=== PATIENT | female | born 1965 | race Caucasian/White ===

== ENCOUNTER 2020-04-11 18:27 | Emergency (ER) | payer MEDICAID ==
--- NOTE | 2020-04-11 18:30 | ERPHSYRPT ---
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 Patient underwent laboratory work-up on 04/08/2020. Patient denies fever or chills. There was significant elevation of her liver function tests. She was also noted to have elevated blood glucose. CAT scan was performed today which showed a distended gallbladder and dilation of the intra-and extrahepatic biliary system. The only medication the patient is on is levothyroxine and Cymbalta. She was tried on metformin to control her blood sugar but felt that that made her nauseated. I reviewed the CAT scan report as well as the reports of her laboratory data from 04/08/2020. Patient symptoms have persisted and patient was told to come into the emergency department for evaluation. Patient drove herself into the hospital. Patient is refusing any antiemetics or pain medicine at this time. Timing/Duration: week(s) Activities at Onset: none Quality: fullness, pressure Abdominal Pain Onset Location: generalized abdomen Pain Radiation: no radiation Severity of Pain-Max: mild Severity of Pain-Current: mild Modifying Factors: Improves With: vomiting Associated Symptoms: diarrhea, loss of appetite, vomiting, No fever/chills, No nausea Allergies/Adverse Reactions: No Known Drug Allergies Allergy (Unverified 04/11/20 18:52) Home Medications: Duloxetine HCl [Cymbalta] 60 mg PO DAILY 04/11/20 [History] Levothyroxine Sodium 50 mcg PO DAILY 04/11/20 [History] Travel Risk - International Travel Have you traveled outside of the country in past 3 weeks: No - Coronavirus Screening Are you exhibiting any of the following symptoms?: No Close contact with a COVID-19 positive Pt in past 14-21 Days: No - Review of Systems Constitutional: No Symptoms Eyes: No Symptoms Ears, Nose, & Throat: No Symptoms Respiratory: No Symptoms Cardiac: No Symptoms Abdominal/Gastrointestinal: Abdominal Pain, Nausea, Vomiting, Diarrhea, Appetite Changes Genitourinary Symptoms: No Symptoms Musculoskeletal: No Symptoms Skin: Other (Jaundice) Neurological: No Symptoms Psychological: No Symptoms Endocrine: No Symptoms Hematologic/Lymphatic: No Symptoms Immunological/Allergic: No Symptoms All Other Systems: Reviewed and Negative - Past Medical History Pertinent Past Medical History: Yes Neurological History: No Pertinent History ENT History: No Pertinent History Cardiac History: No Pertinent History Respiratory History: No Pertinent History Endocrine Medical History: Hypothyroidism Musculoskeletal History: No Pertinent History GI Medical History: No Pertinent History History: No Pertinent History - Past Surgical History Respiratory: No Pertinent History Gastrointestinal: No Pertinent History Genitourinary: No Pertinent History Musculoskeletal: No Pertinent History Female Surgical History: No Pertinent History - Nursing Vital Signs Nursing Vital Signs: Initial Vital Signs Temperature 98.0 F 04/11/20 18:41 Pulse Rate 77 04/11/20 18:41 Respiratory Rate 16 04/11/20 18:41 Blood Pressure 135/73 04/11/20 18:41 O2 Sat by Pulse Oximetry 100 04/11/20 18:41 Pain Scale Pain Intensity 5 - Physical Exam General Appearance: no apparent distress, alert, anxiety, thin Eye Exam: scleral icterus Ears, Nose, Throat Exam: normal ENT inspection, moist mucous membranes Neck Exam: normal inspection, non-tender, supple, full range of motion Respiratory Exam: normal breath sounds, lungs clear, airway intact, No chest tenderness, No respiratory distress Cardiovascular Exam: regular rate/rhythm, normal heart sounds, normal peripheral pulses Gastrointestinal/Abdomen Exam: soft, normal bowel sounds, tenderness (Mild diffuse), No guarding, No rebound Pelvic Exam: not done Rectal Exam: not done Back Exam: normal inspection Extremity Exam: normal inspection, normal range of motion, pelvis stable Neurologic Exam: alert, oriented x 3, cooperative, maxillofacial pathology II-XII nml as tested, normal mood/affect, nml cerebellar function, nml station & gait, sensation nml Skin Exam: jaundice Lymphatic Exam: No adenopathy SpO2 Interpretation: normal O2 Delivery: Room Air Ordered Tests: Active Orders 24 hr Category Date Time Status IV Insertion STAT Care 04/11/20 19:42 Active AMYLASE Stat Lab 04/11/20 19:45 Completed Bilirubin,Direct [Direct Bilirubin] Stat Lab 04/11/20 Completed CBC W DIFF Stat Lab 04/11/20 19:45 Completed CMP Stat Lab 04/11/20 19:45 Completed LIPASE Stat Lab 04/11/20 19:45 Completed Lactic Acid Stat Lab 04/11/20 20:34 Completed Medication Summary Discontinued Medications Generic Name Dose Route Start Last Admin Trade Name Freq PRN Reason Stop Dose Admin Sodium Chloride 1,000 mls @ 999 mls/hr 04/11/20 19:42 04/11/20 22:47 Sodium Chloride 0.9% 1000 Ml IV 04/11/20 20:42 Infused .Q1H1M STA Infusion Sodium Chloride Confirm 04/11/20 20:04 Sodium Chloride 0.9% 1000 Ml Administered 04/11/20 20:05 Dose 1,000 mls @ ud .ROUTE .STK-MED ONE Meperidine HCl 25 mg 04/11/20 21:36 04/11/20 22:17 Demerol 25mg Syringe IV 04/11/20 21:37 25 mg STAT ONE Administration Meperidine HCl Confirm 04/11/20 22:14 Demerol 25mg Syringe Administered 04/11/20 22:15 Dose 25 mg .ROUTE .STK-MED ONE Ondansetron HCl 4 mg 04/11/20 21:37 04/11/20 22:16 Zofran 4 Mg/2 Ml Vial IV 04/11/20 21:38 4 mg STAT ONE Administration Ondansetron HCl Confirm 04/11/20 22:14 Zofran 4 Mg/2 Ml Vial Administered 04/11/20 22:15 Dose 4 mg .ROUTE .STK-MED ONE Lab/Rad Data: Laboratory Result Diagrams 04/11/20 19:45 04/11/20 19:45 Laboratory Results 04/11/20 04/11/20 04/11/20 Range/Units Unknown 20:34 19:45 WBC (4.0-10.5) K/mm3 RBC (4.1-5.4) M/mm3 Hgb (12.0-16.0) gm/dl Hct (35-47) % MCV (78-100) fl MCH (26-32) pg MCHC (32-36) g/dl RDW (11.5-14.0) % Plt Count (150-450) K/mm3 MPV (7.5-11.0) fl Gran % (36.0-66.0) % Eos # (Auto) (0-0.5) Absolute Lymphs (auto) (1.0-4.6) Absolute Monos (auto) (0.0-1.3) Lymphocytes % (24.0-44.0) % Monocytes % (0.0-12.0) % Eosinophils % (0.00-5.0) % Basophils % (0.0-0.4) % Absolute Granulocytes (1.4-6.9) Basophils # (0-0.4) Sodium 134 L (137-145) mmol/L Potassium 3.7 (3.5-5.1) mmol/L Chloride 105 (98-107) mmol/L Carbon Dioxide 18 L (22-30) mmol/L Anion Gap 14.6 (5-15) MEQ/L BUN 17 (7-17) mg/dL Creatinine 0.60 (0.52-1.04) mg/dL Estimated GFR > 60.0 ML/MIN Glucose 216 H (74-106) mg/dL Lactic Acid 1.3 (0.4-2.0) Calcium 9.3 (8.4-10.2) mg/dL Total Bilirubin 10.30 H (0.2-1.3) mg/dL Direct Bilirubin 8.8 H (0.0-0.4) mg/dL AST 127 H (14-36) U/L ALT 293 H (0-35) U/L Alkaline Phosphatase 425 H (38-126) U/L Serum Total Protein 7.1 (6.3-8.2) g/dL Albumin 4.0 (3.5-5.0) g/dL Amylase 65 (30-110) U/L Lipase 78 (23-300) U/L 07/31/20 Range/Units 19:45 WBC 5.4 (4.0-10.5) K/mm3 RBC 4.15 (4.1-5.4) M/mm3 Hgb 12.4 (12.0-16.0) gm/dl Hct 36.7 (35-47) % MCV 88.4 (78-100) fl MCH 29.9 (26-32) pg MCHC 33.8 (32-36) g/dl RDW 14.7 H (11.5-14.0) % Plt Count 262 (150-450) K/mm3 MPV 11.3 H (7.5-11.0) fl Gran % 63.0 (36.0-66.0) % Eos # (Auto) 0.12 (0-0.5) Absolute Lymphs (auto) 1.48 (1.0-4.6) Absolute Monos (auto) 0.38 (0.0-1.3) Lymphocytes % 27.4 (24.0-44.0) % Monocytes % 7.0 (0.0-12.0) % Eosinophils % 2.2 (0.00-5.0) % Basophils % 0.4 (0.0-0.4) % Absolute Granulocytes 3.40 (1.4-6.9) Basophils # 0.02 (0-0.4) Sodium (137-145) mmol/L Potassium (3.5-5.1) mmol/L Chloride (98-107) mmol/L Carbon Dioxide (22-30) mmol/L Anion Gap (5-15) MEQ/L BUN (7-17) mg/dL Creatinine (0.52-1.04) mg/dL Estimated GFR ML/MIN Glucose (74-106) mg/dL Lactic Acid (0.4-2.0) Calcium (8.4-10.2) mg/dL Total Bilirubin (0.2-1.3) mg/dL Direct Bilirubin (0.0-0.4) mg/dL AST (14-36) U/L ALT (0-35) U/L Alkaline Phosphatase (38-126) U/L Serum Total Protein (6.3-8.2) g/dL Albumin (3.5-5.0) g/dL Amylase (30-110) U/L Lipase (23-300) U/L - Progress Progress: improved, pain not gone completely, re-examined Progress Note: 04/11/20 21:45 Medical decision making: This patient's liver function tests are still elevated. Her total bili went from 8.2-10.3. Patient is still in pain and nauseated. Patient now agrees to have pain medication. Patient states she prefers to go home but if we are able to transfer her to the hospital with the machine iii coremaker leonila she would go in hopes to obtain a gastrology consultation sooner than waiting till Tuesday. I spoke with Dr. Chacon who is the emergency room doctor on at [facility] in [facility]. He is calling the machine iii coremaker that is on-call tomorrow and he will contact us shortly to see if patient can be transferred leonila. 04/11/20 22:20 [facility] called back and stated that they declined to transfer because the machine iii coremaker that is on-call tomorrow does not do ERCP which is a procedure the patient might require. We will contact [facility] to see if it is possible that the patient be transferred there. 04/11/20 22:44 I called [facility] and spoke with a Dr. Yair Grijalva who is the hospitalist national secretary. I spoke with him after speaking with the machine iii [address] Delaney. Dr. Delaney said that he felt that we could consult on this patient and that we needed to consult hospitalist. Patient has been accepted and will transfer the patient to [facility] once a bed is aleah ilable 04/11/20 23:37 I spoke with the patient the patient desires to be taken directly to [facility] by her this will be by private vehicle. I think they are reliable and responsible and I think this is okay for her to do. We will leave the IV in place. She is aware she needs to go directly to the hospital. Patient was provided with medical records and the x-ray performed earlier today (CAT scan of the abdomen pelvis) was sent to the cloud Counseled pt/family regarding: lab results, diagnosis, need for follow-up - Departure Departure Disposition: Transfer (By private vehicle) Clinical Impression: Hyperbilirubinemia, Abdominal pain, Vomiting and diarrhea Condition: Stable Critical Care Time: No Referrals: KALIE HALL, INFORMATION RESOURCE CONSULTANT [Primary Care Provider] -
[2020-04-11] MEDS ORDERED: Sodium Chloride 0.9% 1000 ML 1,000 ML IV STA (19:42)
[2020-04-11] MEDS ORDERED: Sodium Chloride 0.9% 1000 ML 1,000 ML ONE (20:04)
[2020-04-11 20:09] LABS: BASOPHIL % 0.4 % (0.0-0.4); Basophil (Absolute #) 0.02 (0-0.4); Eosinophil % 2.2 % (0.00-5.0); Eosinophil (Absolute #) 0.12 (0-0.5); Hematocrit 36.7 % (35-47); Hemoglobin 12.4 gm/dl (12.0-16.0); Lymphocyte (Absolute #) 1.48 (1.0-4.6); Lymphocytes % 27.4 % (24.0-44.0); Mean Cell Volume 88.4 fl (78-100); Mean Corpuscular Hemoglobin 29.9 pg (26-32); Mean Corpuscular Hgb Concent. 33.8 g/dl (32-36); Mean Platelet Volume 11.3 fl (7.5-11.0); Monocyte (Absolute #) 0.38 (0.0-1.3); Platelet Count 262 K/mm3 (150-450); Red Blood Count 4.15 M/mm3 (4.1-5.4); Red Cell Distribution Width 14.7 % (11.5-14.0); White Blood Count 5.4 K/mm3 (4.0-10.5)
[2020-04-11 20:49] LABS: ALKALINE PHOSPHATASE 425 U/L (38-126); AMYLASE 65 U/L (30-110); ANION GAP 14.6 MEQ/L (5-15); BLOOD UREA NITROGEN 17 mg/dL (7-17); CHLORIDE 105 mmol/L (98-107); Calcium 9.3 mg/dL (8.4-10.2); Carbon Dioxide 18 mmol/L (22-30); Glucose 216 mg/dL (74-106); LIPASE 78 U/L (23-300); Potassium 3.7 mmol/L (3.5-5.1); SGOT/AST 127 U/L (14-36); SGPT/ALT 293 U/L (0-35); SODIUM 134 mmol/L (137-145); Total Protein 7.1 g/dL (6.3-8.2)
[2020-04-11] MEDS ORDERED: DEMEROL 25MG SYRINGE IV ONE (21:36)
[2020-04-11] MEDS ORDERED: Zofran 4 MG/2 ML VIAL IV ONE (21:37)
[2020-04-11] MEDS ORDERED: Zofran 4 MG/2 ML VIAL ONE (22:14)
[2020-04-11] MEDS ORDERED: DEMEROL 25MG SYRINGE ONE (22:14)
[2020-04-11 22:46] VITALS: O2SAT 99
[2020-04-12 02:30] VITALS: BP 112/60; PULSE 70
== END 2020-04-11 23:40 | disposition short-term general hospital (02) ==
LOC: ED 18:27
DX: E80.6 Other disorders of bilirubin metabolism (principal); R10.9 Unspecified abdominal pain; R11.10 Vomiting, unspecified; R19.7 Diarrhea, unspecified
CPT/HCPCS: 36000; 36415; 80053; 82150; 82248; 83605; 83690; 85025; 96360; 96374; 96375; 99285; J2175; J2405